=== PATIENT | female | born 1950 | race Caucasian/White ===

== ENCOUNTER 2021-09-30 14:26 | Emergency (ER) | payer MEDICARE, BC ==
[~2021-09-30] VITALS: Ht 162.6 cm; Wt 63.6 kg
--- NOTE | 2021-09-30 14:50 | PHYS DOC ---
Past History Past Medical History: Hypertension, TIA Adult General Chief Complaint Chief Complaint: NEURO SYMPTOMS/DEFICITS HPI HPI Patient is a 71 year old female who presents with complaint of sudden onset dizziness, doubling of vision, and right-sided facial numbness. The patient states that her symptoms started today at 1330. She states that they came on suddenly and she was awake upon onset. Patient states that she suddenly felt very lightheaded and stated that she had doubling of vision to where she could not see numbers on her phone. She states that the symptoms lasted for 15 minutes before resolving. She states that she currently has residual tingling along the right side of her face but denies focal weakness, difficulty with speech or swallowing. Patient states that she has had similar episodes and has had outpatient evaluation including MRI imaging which has shown no discrete cause for her symptoms. She currently takes daily aspirin. Denies headache, nausea, vomiting, chest pain, shortness of breath, abdominal pain, or diarrhea. Review of Systems Review of Systems Constitutional: Denies fever or chills [] Eyes: Doubling of vision, denies vision loss, eye swelling, or eye pain [] HENT: Denies nasal congestion or sore throat [] Respiratory: Denies cough or shortness of breath [] Cardiovascular: Denies chest pain or edema [] GI: Denies abdominal pain, nausea, vomiting, bloody stools or diarrhea [] : Denies dysuria or hematuria [] Musculoskeletal: Denies back pain or joint pain [] Integument: Denies rash or skin lesions [] Neurologic: Right-sided facial numbness, dizziness, denies weakness [] All other systems were reviewed and found to be within normal limits, except as documented in this note. Allergies Allergies No known drug allergies Physical Exam Physical Exam Constitutional: Well developed, well nourished, no acute distress, non-toxic appearance. [] HENT: Normocephalic, atraumatic, bilateral external ears normal, oropharynx moist, no oral exudates, nose normal. [] Eyes: PERRLA, EOMI, conjunctiva normal, no discharge. [] Neck: Normal range of motion, no tenderness, supple, no stridor. [] Cardiovascular:Heart rate regular rhythm, no murmur [] Lungs & Thorax: Bilateral breath sounds clear to auscultation [] Abdomen: Bowel sounds normal, soft, no tenderness, no masses, no pulsatile masses. [] Skin: Warm, dry, no erythema, no rash. [] Back: No tenderness, no CVA tenderness. [] Extremities: No tenderness, no cyanosis, no clubbing, ROM intact, no edema. [] Neurologic: Alert and oriented X 3, normal motor function, mild decrease in light touch along right side of face, no facial droop, normal [id number], no focal deficits noted. [] Current Patient Data Vital Signs Blood pressure 123/66, heart rate 89, respirations 18, SPO2 95% on room air Lab Results Laboratory Tests Test 09/30/21 14:56 09/30/21 15:13 Glucose (Fingerstick) 85 mg/dL White Blood Count 5.5 x10^3/uL Red Blood Count 4.65 x10^6/uL Hemoglobin 13.8 g/dL Hematocrit 41.8 % Mean Corpuscular Volume 90 fL Mean Corpuscular Hemoglobin 30 pg Mean Corpuscular Hemoglobin Concent 33 g/dL Red Cell Distribution Width 14.1 % Platelet Count 189 x10^3/uL Neutrophils (%) (Auto) 62 % Lymphocytes (%) (Auto) 27 % Monocytes (%) (Auto) 8 % Eosinophils (%) (Auto) 2 % Basophils (%) (Auto) 1 % Neutrophils # (Auto) 3.4 x10^3uL Lymphocytes # (Auto) 1.5 x10^3/uL Monocytes # (Auto) 0.4 x10^3/uL Eosinophils # (Auto) 0.1 x10^3/uL Basophils # (Auto) 0.1 x10^3/uL Prothrombin Time 10.5 SEC Prothromb Time International Ratio 1.0 Activated Partial Thromboplast Time 24 SEC Sodium Level 140 mmol/L Potassium Level 4.0 mmol/L Chloride Level 104 mmol/L Carbon Dioxide Level 26 mmol/L Anion Gap 10 Blood Urea Nitrogen 14 mg/dL Creatinine 0.8 mg/dL Estimated GFR (Cockcroft-Gault) 70.9 BUN/Creatinine Ratio 18 Glucose Level 79 mg/dL Calcium Level 9.0 mg/dL Magnesium Level 2.2 mg/dL Total Bilirubin 0.4 mg/dL Aspartate Amino Transf (AST/SGOT) 18 U/L Alanine Aminotransferase (ALT/SGPT) 30 U/L Alkaline Phosphatase 86 U/L Total Protein 7.1 g/dL Albumin 3.8 g/dL Albumin/Globulin Ratio 1.2 Current Medications Medications (Trade) Dose Ordered Sig/Jacinta Route PRN Reason Start Time Stop Time Status Last Admin Dose Admin Sodium Chloride 1,000 ml @ 1,000 mls/hr Q1H IV 09/30/21 15:00 09/30/21 15:59 DC 09/30/21 15:30 EKG EKG Interpreted by me: Heart rate 77, sinus rhythm, left bundle branch block, no acute ST/T wave abnormalities present [] Radiology/Procedures Radiology/Procedures [address] [id number] IMAGING REPORT Signed PATIENT: KAL YU ACCOUNT: [id number] : 1950 LOCATION: ER AGE: 71 SEX: F EXAM STATUS: REG ER ORD. PHYSICIAN: MURIEL AGOSTO MD REASON: right sided facial numbness and dizziness at 1330 today PROCEDURE: CT CODE STROKE HEAD WO Exam Date: 09/30/2021 3:[address] STROKE HEAD W/O Indication: Reason: right sided facial numbness and dizziness at 1330 today / Spl. Instructions: / History: . TECHNIQUE: Head CT was performed without intravenous contrast. One or more of the following dose reduction techniques were utilized: *Automated exposure control (AEC) *Adjustment of mA and/or kV according to patient size *Use of iterative reconstruction technique *CT scan done according to ALARA, or ALARA/IMAGE GENTLY FINDINGS: The ventricles and sulci are prominent consistent with cerebral volume loss. Patchy ill-defined low attenuation areas in the subcortical and periventricular white matter bilaterally are consistent with microvascular disease. There is no evidence of acute intracranial hemorrhage, extra-axial collection, mass effect, midline shift, or acute territorial infarct. No lesion of the skull base or the calvarium is seen. The visualized paranasal sinuses, mastoid air cells and orbits are normal in appearance. IMPRESSION: No evidence for acute intracranial abnormality. Volume loss and microvascular disease. Findings discussed with MURIEL AGOSTO MD at 09/30/2021 3:08 PM. FOR INTERNAL CODING PURPOSES Critical result: RESULT CODE: (C) Electronically signed by: Mili Echevarria MD (09/30/2021 3:09 PM) [id number] DICTATED AND SIGNED BY: MILI ECHEVARRIA MD DATE: 09/30/21 1507 CC: MURIEL AGOSTO MD; [facility] [place] ~ [place] [address] IMAGING REPORT Signed PATIENT: KAL YU ACCOUNT: [id number] : 1950 LOCATION: ER AGE: 71 SEX: F EXAM STATUS: REG ER ORD. PHYSICIAN: MURIEL AGOSTO MD REASON: dizziness PROCEDURE: PORTABLE CHEST 1V XR CHEST 1V History: Reason: dizziness / Spl. Instructions: / History: Comparison: None. Findings: Mild bibasilar linear atelectasis. No consolidation or pleural effusion. Normal heart size. No pneumothorax. TAVR noted. Impression: 1. Mild bibasilar linear atelectasis. Electronically signed by: Bishop Macedo DO (09/30/2021 3:23 PM) [id number] DICTATED AND SIGNED BY: BISHOP MACEDO DO DATE: 09/30/21 1522 CC: MURIEL AGOSTO MD; [facility] ~ [] Heart Score C/O Chest Pain: No Risk Factors: Risk Factors: DM, Current or recent (<one month) smoker, HTN, HLP, family history of CAD, obesity. Risk Scores: Risk Factors: DM, Current or recent (<one month) smoker, HTN, HLP, family history of CAD, obesity. Course & Med Decision Making Course & Med Decision Making Pertinent Labs and Imaging studies reviewed. (See chart for details) Patient's initial NIH score was 1 due to mild decrease in sensation along right side of face. CT performed showed no acute abnormalities. Lab work was reviewed and is normal. On reevaluation less than 1 hour from presentation to the emergency department the patient states that her symptoms have completely resolved. Given previous work-up through [facility], I called the transfer service and spoke with Dr. Walter of neurology regarding patient case. After discussion, she has recommended that the patient be transferred to one of the [facility] facilities to undergo further imaging including MRA to rule out vascular occlusion of the basilar artery given symptoms of double vision and dizziness. Patient accepted to [facility] by Dr. Peralta, patient will be transferred by ground ambulance for further care. Spoke with patient regarding plan of care and she is in agreement at time of disposition. [] Dragon Disclaimer Dragon Disclaimer This electronic medical record was generated, in whole or in part, using a voice recognition dictation system. Departure Departure: Impression: Primary Impression: TIA (transient ischemic attack) Disposition: 02 [facility]ORT TERM [facility]OSP[facility] Condition: STABLE Referrals: MICHAEL SHERMAN (PCP) MURIEL AGOSTO MD September 30, 2021 14:50
[2021-09-30] MEDS ORDERED: IV NORMAL SALINE 1,000ML 1,000 ML IV SCH (15:00)
--- NOTE | 2021-09-30 15:12 | RAD ---
Exam Date: 09/30/2021 3:[address] STROKE HEAD W/O Indication: Reason: right sided facial numbness and dizziness at 1330 today / Spl. Instructions: / H istory: . TECHNIQUE: Head CT was performed without intravenous contrast. One or more of the following dose re duction techniques were utilized: *Automated exposure control (AEC) *Adjustment of mA and/or kV according to patient size *Use of iterative reconstruction technique *CT scan done according to ALARA, or ALARA/IMAGE GENTLY FINDINGS: The ventricles and sulci are prominent consistent with cerebral volume loss. Patchy ill-defined low attenuation areas in the subcortical and periventricular white matter bilaterally are consistent with microvascular disease. There is no evidence of acute intracranial hemorrhage, extra-axial collecti on, mass effect, midline shift, or acute territorial infarct. No lesion of the skull base or the calv arium is seen. The visualized paranasal sinuses, mastoid air cells and orbits are normal in appearanc e. IMPRESSION: No evidence for acute intracranial abnormality. Volume loss and microvascular disease. Findings discussed with MURIEL AGOSTO MD at 09/30/2021 3:08 PM. FOR INTERNAL CODING PURPOSES Critical result: RESULT CODE: (C) Electronically signed by: Eddie Echevarria MD (09/30/2021 3:09 PM) [id number]
--- NOTE | 2021-09-30 15:25 | RAD ---
XR CHEST 1V History: Reason: dizziness / Spl. Instructions: / History: Comparison: None. Findings: Mild bibasilar linear atelectasis. No consolidation or pleural effusion. Normal heart size. No pneumo thorax. TAVR noted. Impression: 1. Mild bibasilar linear atelectasis. Electronically signed by: Bishop Macedo DO (09/30/2021 3:23 PM) [id number]
[2021-09-30 15:31] LABS: BASO # 0.1 x10^3/uL (0.0-0.2); BASO % 1 % (0-3); EOS # 0.1 x10^3/uL (0.0-0.7); EOS % 2 % (0-3); HEMATOCRIT 41.8 % (36.0-47.0); HEMOGLOBIN 13.8 g/dL (12.0-15.5); LYMPH # 1.5 x10^3/uL (1.0-4.8); LYMPH % 27 % (24-48); MEAN CORPUSCULAR HEMOGLOBIN 30 pg (25-35); MEAN CORPUSCULAR HGB CONC 33 g/dL (31-37); MEAN CORPUSCULAR VOLUME 90 fL (79-100); MONO # 0.4 x10^3/uL (0.0-1.1); MONO % 8 % (0-9); NEUT # 3.4 x10^3uL (1.8-7.7); NEUT % 62 % (31-73); PLATELET COUNT 189 x10^3/uL (140-400); RED BLOOD COUNT 4.65 x10^6/uL (3.50-5.40); RED CELL DISTRIBUTION WIDTH 14.1 % (11.5-14.5); WHITE BLOOD COUNT 5.5 x10^3/uL (4.0-11.0)
[2021-09-30 15:37] LABS: CREATININE 0.8 mg/dL (0.6-1.0); GFR 70.9
[2021-09-30 15:44] LABS: ALBUMIN 3.8 g/dL (3.4-5.0); ALBUMIN/GLOBULIN RATIO 1.2 (1.0-1.7); MAGNESIUM 2.2 mg/dL (1.8-2.4); TOTAL BILIRUBIN 0.4 mg/dL (0.2-1.0); TOTAL PROTEIN 7.1 g/dL (6.4-8.2)
[2021-09-30 17:24] LABS: CLARITY,URINE CLEAR; COLOR,URINE YELLOW
[2021-09-30 17:25] LABS: BACTERIA,URINE 0 /HPF (0-FEW); GLUCOSE,URINE NEG (NEG); NITRITE,URINE NEG (NEG); RBC,URINE 0 /HPF (0-2); SQUAMOUS EPITHELIAL CELL,UR FEW /LPF; UROBILINOGEN,URINE 0.2 mg/dL (0.2 mg/dL)
[2021-09-30 17:49] VITALS: BP 124/59
== END 2021-09-30 18:11 | disposition short-term general hospital (02) ==
LOC: ER 14:26
DX: G45.9 Transient cerebral ischemic attack, unspecified (principal); I10 Essential (primary) hypertension; Z86.73 Personal history of transient ischemic attack (TIA), and cerebral infarction without residual deficits; Z79.82 Long term (current) use of aspirin
CPT/HCPCS: 36415; 70450; 71045; 80053; 81001; 82947; 83735; 85025; 85610; 85730; 87086; 93005; 96360; 99285; J7030